=== PATIENT | female | born 1990 | race African-American/Black ===

== ENCOUNTER → 2016-04-28 | Outpatient (CLI) | payer BC ==
--- NOTE | 2016-04-28 11:32 | USB ---
Reason for exam: clinical finding. History: Patient is nulliparous. Family history of breast cancer in maternal grandmother at age 70. Benign excisional biopsy of the right breast, 2011. Indicated problem(s): lump or thickening in the left breast. Physical Findings: Nurse Summary: bilateral nodularity, all soft, movable (nurse ts). US Breast LT Left breast ultrasound including all four quadrants, the retroareolar region and axilla demonstrates no cystic or solid lesion seen. These results were verbally communicated with the patient and result sheet given to the patient on 04/28/16. ASSESSMENT: Negative, BI-RAD 1 RECOMMENDATION: Clinical management of the left breast. Manage patient on a clinical basis.
== END | disposition home or self-care (01) ==
LOC: RADUSWWP 08:30
PROVIDERS: ATTEND Family Medicine
DX: N63 Unspecified lump in breast (principal)